=== PATIENT | male | born 1970 | race Caucasian/White ===

== ENCOUNTER 2017-12-26 23:41 | Emergency (ER) | payer SELFPAY ==
--- NOTE | 2017-12-27 00:04 | ED Physician Documentation ---
PD HPI LOWER EXT INJURY - Stated complaint Stated Complaint: LT LEG PAIN - History obtained from History obtained from: Patient - History of Present Illness PD HPI LOW EXT INJURY LOCATION: Left, Upper leg Where injury occurred: Home Timing - onset: How many days ago (6) Timing - details: Gradual onset, Still present Associated symptoms: Swelling Contributing factors: No: Anticoagulated Similar symptoms before: Work up / diagnostics, Treatment Recently seen: Not recently seen - Additional information Additional information: Patient is a 47 year old male with a history of dvt who is presenting to the emergency department for left sided leg pain. patient was last diagnosed with an unprovoked dvt about 3 years ago. At that time patient was started on coumadin, but the work up did not give a good explanation. Patient eventually lost his insurance after a divorce and stopped taking the medication. Patient is presenting today for a five day history of worsening left thigh pain. Patient denies any trauma. Review of Systems Ten Systems: 10 systems reviewed and negative Constitutional: denies: Fever, Chills Musculoskeletal: reports: Extremity pain, Extremity swelling, Pain with weight bearing PD PAST MEDICAL HISTORY - Past Medical History Cardiovascular: Hypertension, Deep vein thrombosis Psych: Anxiety - Present Medications Home Medications: Ambulatory Orders Medication Instructions Recorded Confirmed Aspirin [Aspirin EC] 81 mg PO DAILY 02/15/13 05/26/14 Lisinopril [Zestril] 20 mg PO DAILY 02/15/13 05/26/14 Paroxetine HCl [Paxil] 20 mg PO DAILY 02/15/13 05/26/14 Warfarin Sodium [Coumadin] 10 mg PO DAILY 02/15/13 05/26/14 Hydroxyzine HCl 25 mg PO DAILY 05/26/14 05/26/14 Lorazepam [Ativan] 1 - 2 mg PO Q6H PRN #30 tablet 05/26/14 Promethazine [Phenergan] 25 mg PO Q6H PRN #20 tablet 05/26/14 raNITIdine [Zantac] 150 mg PO DAILY #30 tablet 05/26/14 Rivaroxaban [Xarelto] 15 mg PO BID 21 Days #42 tablet 12/27/17 Rivaroxaban [Xarelto] 20 mg PO DAILY #30 tablet 12/27/17 - Allergies Allergies/Adverse Reactions: Allergies Allergy/AdvReac Type Severity Reaction Status Date / Time No Known Drug Allergies Allergy Verified 12/27/17 00:09 - Social History Does the pt smoke?: Yes Smoking Status: Current every day smoker Does the pt drink ETOH?: Yes Does the pt have substance abuse?: Yes PD ED PE NORMAL - Vitals Vital signs reviewed: Yes - General General: Alert and oriented X 3, No acute distress - HEENT HEENT: Atraumatic - Cardiac Cardiac: RRR - Respiratory Respiratory: No respiratory distress - Abdomen Abdomen: Non distended - Derm Derm: Normal color, Warm and dry, No rash - Neuro Neuro: Alert and oriented X 3 PD ED PE EXPANDED - Extremities Extremities: Left thigh (mild tenderness to palpation, no ecchymosis, mild swelling) Results - Vitals Vitals: Vital Signs - 24 hr 12/26/17 23:45 Temperature 36.4 C L Heart Rate 102 H Respiratory 17 Rate Blood Pressure 141/95 H O2 Saturation 99 Oxygen O2 Source Room air - Labs Labs: Laboratory Tests 12/27/17 12/27/17 12/27/17 00:25 00:25 00:25 WBC 11.5 H RBC 4.72 Hgb 13.9 L Hct 41.4 L MCV 87.7 MCH 29.5 MCHC 33.7 RDW 12.9 Plt Count 189 MPV 7.5 Neut # 8.7 H Lymph # 1.5 [place] # 1.0 Eos # 0.1 Baso # 0.1 Absolute Nucleated RBC 0.01 Nucleated RBC % 0.0 PT 12.7 H INR 1.1 APTT 23.9 L Sodium 136 Potassium 3.7 Chloride 104 Carbon Dioxide 24 Anion Gap 8.0 BUN 14 Creatinine 0.7 Estimated GFR (MDRD) 122 Glucose 159 H Calcium 8.9 Total Bilirubin 0.5 AST 17 ALT 16 Alkaline Phosphatase 26 L Total Protein 6.9 Albumin 3.8 Globulin 3.1 Albumin/Globulin Ratio 1.2 Lipase 29 - Rads (name of study) venous duplex Radiology: Final report received, Discussed with rads (acute dvt) PD MEDICAL DECISION MAKING - ED course Complexity details: reviewed old records, reviewed results, re-evaluated patient , considered differential, d/w patient ED course: patient was seen and examined at bedside. Imaging was ordered, labs were drawn. patient was found to have an acute dvt. Patient showed no signs of PE or hemodynamic instability. Patient was started on xarelto 15mg. patient required no further inpatient work up at this time and was stable for discharge with outpatient follow up. Departure - Departure Disposition: 01 Home, Self Care Clinical Impression: DVT (deep venous thrombosis) Condition: Good Instructions: ED DVT Follow-Up: primary,care provider [Other] Prescriptions: Rivaroxaban [Xarelto] 15 mg PO BID 21 Days #42 tablet Rivaroxaban [Xarelto] 20 mg PO DAILY #30 tablet Comments: Your symptoms today are being caused by a blood clot. You have been started on rivaroxaban or xarelto. You will take 15mg twice a day for 3 weeks, then 20mg daily. It is important that you re-establish primary care. You can take tylenol as needed for pain as well as ice and heat. You should return to the emergency department for chest pain, shortness of breath, trauma/falls, new, worsening or uncontrollable symptoms. Forms: Activity restrictions
[2017-12-27] MEDS ORDERED: RIVAROXABAN 15 MG TABLET PO STA (00:15)
[2017-12-27 00:36] LABS: BASOPHILS # (AUTO) 0.1 10^3/uL (0.0-0.1); EOSINOPHILS # (AUTO) 0.1 10^3/uL (0.0-0.7); EOSINOPHILS % (AUTO) 0.9 %; HGB - HEMOGLOBIN 13.9 g/dL (14.0-18.0); LYMPHOCYTES # (AUTO) 1.5 10^3/uL (1.5-3.5); MEAN CORPUSCULAR HEMOGLOBIN 29.5 pg (27.0-31.0); MEAN CORPUSCULAR HGB CONC 33.7 g/dL (32.0-36.0); MEAN CORPUSCULAR VOLUME 87.7 fL (80.0-94.0); MEAN PLATELET VOLUME 7.5 fL (7.4-11.4); MONOCYTES % (AUTO) 9.1 %; NEUTROPHILS # (AUTO) 8.7 10^3/uL (1.5-6.6); PLT - PLATELET COUNT 189 10^3/uL (130-450); RED BLOOD COUNT 4.72 10^6/uL (4.70-6.10); RED CELL DISTRIBUTION WIDTH 12.9 % (12.0-15.0); WHITE BLOOD COUNT 11.5 x10^3/uL (4.8-10.8)
[2017-12-27 00:43] LABS: ALBUMIN 3.8 g/dL (3.2-5.5); ALBUMIN/GLOBULIN RATIO 1.2 (1.0-2.2); BILIRUBIN,TOTAL 0.5 mg/dL (0.2-1.0); CALCIUM 8.9 mg/dL (8.5-10.3); CREATININE 0.7 mg/dL (0.6-1.2); TOTAL PROTEIN 6.9 g/dL (6.7-8.2)
[2017-12-27 00:44] LABS: INR 1.1 (0.8-1.2); PT - PROTHROMBIN TIME 12.7 secs (9.9-12.6)
--- NOTE | 2017-12-27 00:56 | Ultrasound Report ---
EXAM: LEFT LOWER EXTREMITY VENOUS ULTRASOUND EXAM DATE: 12/27/2017 12:03 AM. CLINICAL HISTORY: Left leg pain, hx of dvt. COMPARISON: No previous left leg DVT study.. TECHNIQUE: Real-time sonographic vascular imaging was performed by the preschool teacher aide through the lower extremity utilizing both color-flow and Doppler spectral analysis. Multiple artists' booking representative static mike ges were saved for review. FINDINGS: Common Femoral Vein (CFV): Normal. CFV-GSV Junction: Normal. Profunda Femoral Vein (PFV): Nonocclusive thrombus. Femoral Vein (FV) Prox: Nonocclusive thrombus. Femoral Vein (FV) Mid: Nonocclusive thrombus. Femoral Vein (FV) Dist: Nonocclusive thrombus. Popliteal Vein: Normal. Posterior Tibial Veins: Normal. Peroneal Veins: Normal. Contralateral Side CFV: Normal. Other: None. IMPRESSION: Exam positive for nonocclusive left leg DVT throughout the femoral vein. RADIA The above findings were discussed with Farhan Hinojosa by Dr. Jabari Quintero at 00:55 hrs on 12/27. Referring Provider Line: [phone] SITE ID: [id number]
[2017-12-27 01:22] VITALS: BP 135/80
== END 2017-12-27 01:22 | disposition home or self-care (01) ==
LOC: ED 23:41
DX: I82.402 Acute embolism and thrombosis of unspecified deep veins of left lower extremity (principal); I10 Essential (primary) hypertension; Z79.01 Long term (current) use of anticoagulants; F17.200 Nicotine dependence, unspecified, uncomplicated
CPT/HCPCS: 36415; 80053; 83690; 85025; 85610; 85730; 93971; 99283; 99284; A9270

== ENCOUNTER 2021-12-29 13:27 | Outpatient (CLI) | payer OTHER ==
--- NOTE | 2021-12-29 15:07 | Ultrasound Report ---
PROCEDURE: Duplex Ext Veins Left INDICATIONS: DEEP VENOUS THROMBOPHLEBITIS, RIGHT MEDIAL CALF NARDA TECHNIQUE: Real-time imaging, as well as color and pulse Doppler interrogation, were performed of the lower extr emity deep veins from the inguinal ligament to the popliteal fossa. COMPARISON: December 27, 2017. FINDINGS: Normal compressibility of the common femoral vein. Suggestion of venous dislocation in the femoral vein. Partial compressibility with maintained flow of the left femoral, popliteal, and peroneal veins, comp atible with chronic, nonocclusive DVT. IMPRESSION: Chronic, nonocclusive DVT in the left lower extremity. Reviewed by: Joe Galeano MD on 12/29/2021 3:06 PM PDT Approved by: Joe Galeano MD on 12/29/2021 3:06 PM PDT Station ID: [id number]
--- NOTE | 2021-12-29 15:11 | Ultrasound Report ---
PROCEDURE: Ext Limited Non Vascular INDICATIONS: DEEP VENOUS THROMBOPHLEBITIS, RIGHT MEDIAL CALF NARDA TECHNIQUE: Real-time scanning was performed of the calf soft tissues, with image documentation. COMPARISON: None. FINDINGS: Multiple varicosities are seen extending from the right greater saphenous vein, which exhi bits evidence of reflux. Tortuous greater saphenous at the level of the mid calf. Mid calf aircraft rigging and controls mechanic is visualized to the greater saphenous vein. IMPRESSION: Right calf varicosities as detailed above. Reviewed by: Joe Galeano MD on 12/29/2021 3:10 PM PDT Approved by: Joe Galeano MD on 12/29/2021 3:10 PM PDT Station ID: [id number]
== END 2021-12-29 13:28 | disposition home or self-care (01) ==
LOC: DI 13:27
PROVIDERS: ATTEND Physician Assistant Medical
DX: I82.502 Chronic embolism and thrombosis of unspecified deep veins of left lower extremity (principal); I83.91 Asymptomatic varicose veins of right lower extremity

== ENCOUNTER 2024-01-06 15:45 | Outpatient (CLI) | payer OTHER ==
[2024-01-06 20:09] LABS: BASOPHILS % (AUTO) 0.5 %; EOSINOPHILS # (AUTO) 0.1 10^3/uL (0.0-0.7); HCT - HEMATOCRIT 43.8 % (42.0-52.0); HGB - HEMOGLOBIN 14.1 g/dL (14.0-18.0); LYMPHOCYTES # (AUTO) 1.5 10^3/uL (1.5-3.5); LYMPHOCYTES % (AUTO) 19.1 %; MEAN CORPUSCULAR HEMOGLOBIN 28.3 pg (27.0-31.0); MEAN CORPUSCULAR HGB CONC 32.2 g/dL (32.0-36.0); MEAN CORPUSCULAR VOLUME 87.8 fL (80.0-94.0); MEAN PLATELET VOLUME 9.2 fL (7.4-11.4); MONOCYTES # (AUTO) 0.6 10^3/uL (0.0-1.0); MONOCYTES % (AUTO) 7.4 %; NEUTROPHILS # (AUTO) 5.7 10^3/uL (1.5-6.6); NEUTROPHILS % (AUTO) 71.6 %; PLT - PLATELET COUNT 324 10^3/uL (130-450); RED BLOOD COUNT 4.99 10^6/uL (4.70-6.10)
[2024-01-06 20:30] LABS: ALBUMIN 4.3 g/dL (3.2-5.5); ALBUMIN/GLOBULIN RATIO 1.3 (1.0-2.2); BILIRUBIN,TOTAL 0.4 mg/dL (0.2-1.0); CALCIUM 9.8 mg/dL (8.5-10.3); CREATININE 0.8 mg/dL (0.6-1.3); CRP - C-REACTIVE PROTEIN 6.8 mg/dL (<0.5); POTASSIUM 4.3 mmol/L (3.5-4.5); TOTAL PROTEIN 7.6 g/dL (6.4-8.9)
[2024-01-06 20:56] LABS: RHEUMATOID FACTOR NEGATIVE (Negative)
== END 2024-01-06 16:00 | disposition home or self-care (01) ==
LOC: LAB.N 15:45
PROVIDERS: ATTEND Nurse Practitioner
DX: M25.50 Pain in unspecified joint (principal)
CPT/HCPCS: 36415; 80053; 85025; 85651; 86140; 86430